=== PATIENT | male | born 1995 | race Two or more races ===

== ENCOUNTER 2024-11-08 21:43 | Emergency (ER) | payer OTHER ==
[~2024-11-08] VITALS: Ht 190.5 cm; Wt 119.3 kg
[2024-11-08] MEDS ORDERED: FAMOTIDINE/PF 20 MG in 0.9 % SODIUM CHLORIDE 8 ML IV PUSH STA (22:04)
[2024-11-08] MEDS ORDERED: HYOSCYAMINE SULFATE 0.125 MG TAB.SUBL SL ONE (22:15)
[2024-11-08] MEDS ORDERED: DIPHENOXYLATE HCL/ATROPINE 1 UDTAB TABLET PO ONE (22:15)
[2024-11-08] MEDS ORDERED: 0.9 % SODIUM CHLORIDE 1,000 ML IV SCH (22:15)
[2024-11-08] MEDS ORDERED: ONDANSETRON HCL 2 MG/ML VIAL IV ONE (22:15)
[2024-11-08] MEDS ORDERED: FAMOTIDINE/PF 20 MG/2 ML VIAL ONE (23:22)
[2024-11-08] MEDS ORDERED: HYOSCYAMINE SULFATE 0.125 MG TAB.SUBL ONE (23:22)
[2024-11-08] MEDS ORDERED: ONDANSETRON HCL 2 MG/ML VIAL ONE (23:22)
[2024-11-08] MEDS ORDERED: ONDANSETRON ODT8 MG PO (23:47)
[2024-11-08] MEDS ORDERED: PEPCID AC20 MG PO (23:47)
[2024-11-08 23:59] LABS: HEMATOCRIT 44.7 % (39.0-48.0); HEMOGLOBIN 15.3 g/dL (13-16.00); MEAN CELL VOLUME 88.9 fL (80.0-100.00); MEAN CORPUSCULAR HEMOGLOBIN 30.4 pg (27.00-32.0); MEAN CORPUSCULAR HGB CONC 34.2 g/dl (32.0-36.0); PLATELET COUNT 198 K/uL (150-450); RED BLOOD COUNT 5.02 M/uL (4.00-6.00); RED CELL DISTRIBUTION WIDTH 12.7 % (11.5-14.5)
[2024-11-09 00:24] LABS: ALBUMIN 4.5 gm/dL (3.4-5.0); BILIRUBIN TOTAL 1.46 mg/dL (0.3-1.2); CALCIUM 9.7 mg/dL (8.5-10.1); CREATININE SERUM 1.21 mg/dL (0.70-1.30); GFR 70.41; GLOBULINA 3.7 G/DL (2.4-3.5); POTASSIUM 3.73 mEq/L (3.5-5.1); TOTAL PROTEIN 8.2 gm/dL (6.4-8.2)
[2024-11-09] MEDS ORDERED: METOCLOPRAMIDE HCL 5 MG/ML VIAL ONE (00:54)
== END 2024-11-09 01:53 | disposition home or self-care (01) ==
LOC: ER 21:46
PROVIDERS: General Practice
DX: B34.9 Viral infection, unspecified (principal); R19.7 Diarrhea, unspecified; R11.2 Nausea with vomiting, unspecified

== ENCOUNTER 2025-03-13 12:31 | Emergency (ER) | payer OTHER ==
[~2025-03-13] VITALS: Ht 193 cm; Wt 114.3 kg
[~2025-03-13 12:31] MED LIST: ONDANSETRON ODT8 MG PO; PEPCID AC20 MG PO
[2025-03-13 12:58] VITALS: BP 114/84; O2SAT 99
[2025-03-13] MEDS ORDERED: TETANUS & DIPHTHERIA TOX,ADULT 0.5 ML VIAL IM STA (15:02)
[2025-03-13] MEDS ORDERED: CEFTRIAXONE SODIUM 1,000 MG VIAL IM STA (15:02)
[2025-03-13] MEDS ORDERED: CEFTRIAXONE SODIUM 1,000 MG VIAL ONE (15:20)
[2025-03-13] MEDS ORDERED: DIPHTH,PERTUSS(ACELL),TET VAC 0.5 ML SYRINGE IM ONE (15:21)
[2025-03-13] MEDS ORDERED: LIDOCAINE HCL 1% 10ML VIAL ONE (15:23)
[2025-03-13 15:51] LABS: BASO % 0.3 % (0.1-1.2); HEMATOCRIT 40.6 % (40.1-51.0); HEMOGLOBIN 14.3 g/dL (13.7-17.5); LYMPH # 2.22 (1.18-3.74); LYMPH % 22.2 % (19.3-53.1); MEAN CORPUSCULAR HEMOGLOBIN 29.9 pg (25.6-32.2); MONO # 0.92 (0.24-0.82); MONO % 9.2 % (4.7-12.5); NEUT % 63.1 % (34.0-71.1); PLATELET COUNT 261 K/uL (163-369); RED BLOOD COUNT 4.78 M/uL (4.63-6.08); RED CELL DISTRIBUTION WIDTH 12.3 % (11.6-14.4)
[2025-03-13 16:22] LABS: ALBUMIN 4.3 gm/dL (3.4-5.0); BILIRUBIN TOTAL 0.56 mg/dL (0.3-1.2); CALCIUM 9.5 mg/dL (8.5-10.1); CREATININE SERUM 1.14 mg/dL (0.70-1.30); GFR 75.42; GLOBULINA 3.9 G/DL (2.4-3.5); POTASSIUM 3.86 mEq/L (3.5-5.1); TOTAL PROTEIN 8.2 gm/dL (6.4-8.2)
[2025-03-13] MEDS ORDERED: GILTUSS HONEY118 ML PO (17:24)
[2025-03-13] MEDS ORDERED: ZITHROMAX TRI-500 MG PO (17:24)
== END 2025-03-13 20:19 | disposition home or self-care (01) ==
LOC: ER 12:52
PROVIDERS: General Practice
DX: S01.551A Open bite of lip, initial encounter (principal); W54.0XXA Bitten by dog, initial encounter; Y93.89 Activity, other specified; Y92.89 Other specified places as the place of occurrence of the external cause; Y99.9 Unspecified external cause status; J06.9 Acute upper respiratory infection, unspecified